=== PATIENT | female | born 1970 | race Caucasian/White ===

== ENCOUNTER 2021-11-04 15:34 | Outpatient (CLI) | payer OTHER | END 2021-11-04 15:35 | disposition home or self-care (01) | LOC: SCSMRI 15:34 | PROVIDERS: ATTEND Family Medicine | DX: M75.102 Unspecified rotator cuff tear or rupture of left shoulder, not specified as traumatic (principal); M25.812 Other specified joint disorders, left shoulder; M24.212 Disorder of ligament, left shoulder ==